=== PATIENT | male | born 1980 | race Caucasian/White ===

== ENCOUNTER 2024-08-08 12:10 | Outpatient (AMB) | payer MEDICARE, MEDICAID, SELFPAY ==
--- NOTE | 2024-08-08 12:18 | MHC.OFFWIV ---
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 Denies any known exposure to sick contacts. Denies any consumption of questionable or undercooked food. Denies fever. States that he has been vomiting and/or having diarrhea every 15 minutes or so since this morning. Trying to take small sips of water, but having difficulty keeping anything down. [facility] Social History Patient Tobacco Use Status: Never used Tobacco Review of Systems Const All systems reviewed & are unremarkable except as noted in HPI and below Physical Exam Vital Signs: Last Vital Signs Temp 97.9 F 08/08/24 12:20 Pulse 76 08/08/24 12:20 BP 122/80 08/08/24 12:20 Pulse Ox 97 08/08/24 12:20 Oxygen Delivery Method Room Air 08/08/24 12:20 BMI result Body Mass Index 31.0 Const General: cooperative, ill appearing acutely and tired appearing HEENT Head: Yes normal to inspection Ears: hearing grossly normal bilaterally Resp Effort & Inspection: normal respiratory effort Auscultation: clear to auscultation bilaterally Cardio Rate: regular rate Rhythm: regular rhythm GI Inspection: Yes normal to inspection Palpation (GI): Soft to palpation and No hepatosplenomegaly present Auscultation: Hyperactive bowel sounds present Skin General skin exam: no rashes or lesions noted Extrem General: Yes capillary refill normal and Yes no clubbing, cyanosis or edema Psych Appearance: grossly normal Mental Status: mental status grossly normal Speech and movement: Normal speech and movement present Assessment & Plan Assessment & Plan (1) Vomiting and diarrhea: Code(s): R11.10 - Vomiting, unspecified; R19.7 - Diarrhea, unspecified Plan: Likely a viral gastroenteritis. We will start him on Zofran, and I also prescribed loperamide for the diarrhea. We reviewed indications, use, possible side effects of these medications. I encouraged hydration and electrolyte replacement as much as tolerated, followed by advancing diet once he is able to. I rechecked BP during our visit, and it was 120/68. Discussed with patient that if this does not resolve over the next day or so, or if he is truly unable to keep down any fluids/electrolytes drinks or food, and certainly if he develops any dizziness/weakness, he should go to the emergency department for evaluation and IV fluid replacement. He verbalizes understanding and agrees to plan. Medications: New ondansetron HCl 4 mg PO Q8H 4 days PRN 12 tabs 0RF nausea and vomiting R11.10 - Vomiting, unspecified, R19.7 - Diarrhea, unspecified loperamide Take one capsule after each loose stool, every 6 hours as needed. 2 mg PO Q6H 2 days PRN 8 caps 0RF loose stool A08.4 - Viral intestinal infection, unspecified Coding Level of Care Code Est Pt Level 4 (63457) Diagnoses Vomiting and diarrhea R11.10; R19.7
[2024-08-08 12:20] VITALS: BP 122/80; PULSE 76; TEMP 36.6; O2SAT 97; BMI 31.0
--- OUTSIDE RECORDS SUMMARY | 2024-08-08 12:52 | XMS_ITS | Clinical Summary ---
Author Organization [facility] Address [id number] [place] [id number] Care Team Providers [employer] Name Role Phone Alexandre Britton MD Primary Care Provider [phone] Allergies Active Allergy Reactions Criticality Noted Date Comments Cat Dander Medium 06/27/2018 Other Reaction(s): Runny Nose/Rhinitis Sneezing and watery eyes. House Dust Medium 06/27/2018 Other Reaction(s): Runny Nose/Rhinitis Sneezing, watery eyes Pollen Extracts Medium 06/27/2018 Other Reaction(s): Runny Nose/Rhinitis Sneezing, watery eyes Medications netarsudiL-kim noprost (Rocklatan) 0.02-0.005 % drops apply 1 Drop to the eye at bedtime. Place 1 drop I left eye once daily at bedtime. 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 Uses braces-- physical therapy Gastroesophageal reflux disease without esophagi tis 06/27/2018 Open-angle glaucoma of both eyes 06/27/2018 Immunizations Name Administration Dates Next Due IRA/Catracho SARS-CoV-2 COVID -19, vector-nr, rS-Ad26, preservative free 10/26/2020 Tdap Tetanus diptheria acell ular pertussis (Boostrix; Adacel) 7yo and older 04/21/2016 Surgical History Surgery Date Site/Laterality Comments CATARACT EXTRACTION PROCEDURE: HISTORICAL CATARACT REMOVAL CHOLECYSTECTOMY 2017 PROCEDURE: ID CHOLECYSTECTOMY; COMMENT: [facility] TONSILLECTOMY PROCEDURE: ID TONSILLECTOMY PRIMARY/SECONDARY <AGE 12 APPENDECTOMY PROCEDURE: ID APPENDECTOMY HERNIA REPAIR 09/2018 PROCEDURE: REPAIR UMBILICAL HERNIA; COMMENT: umbilical/incisional; Dr. Cabezas Medical History Medical History Date Comments Glaucoma DX:Glaucoma Blind right eye DX:Blind right e ye; COMMENT: on disability GERD (gastroesophageal reflux disease) DX:GERD (gastroesophageal reflux disease) Cataracts, bilateral DX:Cataract s, bilateral Macular degeneration disease DX: Macular degeneration disease Incisional hernia DX:Incisional hernia Family History Medical History Relation Name Comments Other: Other Aunt breast cancer Diabetes Father Hypertension Father Myelodysplastic syndrome-->lymphoma, diverticulosis Other: Other Maternal Grandmother breast cancer ALFREDO disease Mother Hypertension Mother Other: Other Mother's side nonhodgkins ly mpoma/Niece at 17yo Other: Other Paternal Grandfather doesnt know medical history Other: Other Paternal Grandmother doesnt know medical history Other: Other Sister breast cancer a t 42yo. Other 2 sisters - no breast cancer Colon cancer Neg Hx Uterine cancer Neg Hx Relation Name Status Comments Aunt Father Maternal Grandfather Maternal Grandmother Mother Alive Mother's side Paternal Grandfather Paternal Grandmother Sister Alive Social History Tobacco Use Types Packs/Day Years Used Date Smoking Tobacco: Former Cigarettes Q uit: 06/28/2015 Smokeless Tobacco: Never Alcohol Use Standard Drinks/Week Comments Yes 0 (1 standard drink = 0.6 oz pur e alcohol) Sex and Gender Information Value Date Recorded Sex Assigned at Not on file Legal Sex Male 6:36 PM EST Gender Identity Not on file Sexual Orientation Not on file Obstetrics History Last Filed Vital Signs Vital Sign Reading Time Taken Comments Blood Pressure 138/100 09/19/2023 10:35 AM EDT Pulse 100 09/19/2023 10:35 AM EDT Temperature - - Respiratory Rate - - Oxygen Saturation - - Inhaled Oxygen Concentration - - Weight 97.1 kg (214 lb) 09/19/2023 10:35 AM EDT Height 175.3 cm (5' 9 ) 09/19/2023 10:35 AM EDT Body Mass Index 31.6 09/19/2023 10:35 AM EDT Plan of Treatment Health Maintenance Due Date Last Done Comments Hepatitis B Vaccines (1 of 3 - 19+ 3-dose series) 09/09/1998 Pneumococcal Vaccine: Pediat rics (0 to 5 Years) and At-Risk Patients (6 to 64 Years) (1 of 2 - PCV) 09/09/1998 Depression Screening 03/11/2022 HIV Screening 03/11/2022 Hepatitis C Screening 03/11/2022 Medicare Annual Wellness Visit 03/11/2022 Social Influencers of Health Screening 03/11/2022 COVID-19 Vaccine (2 - 2023-2 5 season) 2023 10/26/2020 Influenza Vaccine (Season Ended) 2024 DTaP,Tdap,and Td Vaccines (2 - Td or Tdap) 04/21/2026 04/21/2016 Cholesterol Screening (Lipid Panel) 08/26/2026 08/26/2021 HIB Vaccines Aged Out No longer eligi ble based on patient's age to complete this topic HPV Vaccines Aged Out No longer eligi ble based on patient's age to complete this topic Hepatitis A Vaccines Aged Out No long er eligible based on patient's age to complete this topic IPV Vaccines Aged Out No longer eligi ble based on patient's age to complete this topic MMR Vaccines Aged Out No longer eligi ble based on patient's age to complete this topic Meningococcal ACWY Vaccine Aged Out N o longer eligible based on patient's age to complete this topic Meningococcal B Vaccine Aged Out No l onger eligible based on patient's age to complete this topic RSV Immunization Patients Un kwame 20 months Aged Out No longer eligible b ased on patient's age to complete this topic Varicella Vaccines Aged Out No longer eligible based on patient's age to complete this topic Procedures Procedure Name Priority Date/Time Associated Diagnosis Comments LIPID PANEL Routine 08/26/2021 from Last 3 Months or Most Recently Relevant to Health Maintenance Results * (ABNORMAL) Lipid panel (08/26/2021) LDL/HDL Ratio 3 0 - 4 Triglycerides 56 0 - 130 mg/dL Cholesterol 183 0 - 200 mg/dL HDL 67 >=40 mg/dL LDL Cholesterol 105(A) 0 - 100 mg/dL Blood Venous blood specimen / Unknown us Historical Provider LAB BLOOD ORDERABLES Princess l Result from Last 3 Months or Most Recently Relevant to Health Maintenance Care Teams [employer] Relationship Specialty Start Date End Date Alexandre Britton MD PCP - General Internal Medicine 05/09/21
== END 2024-08-08 13:58 | disposition home or self-care (01) ==
PROVIDERS: Visit Provider Nurse Practitioner Family
DX: R11.10 Vomiting, unspecified (principal); R19.7 Diarrhea, unspecified

== ENCOUNTER → 2024-08-08 12:10 | Outpatient (BNVA) | payer MEDICARE, MEDICAID, SELFPAY | DX: R11.10 Vomiting, unspecified (principal); R19.7 Diarrhea, unspecified | CPT/HCPCS: 99212 ==